=== PATIENT | male | born 1950 | race Caucasian/White ===

== ENCOUNTER 2016-12-24 18:49 | Emergency (ER) | payer OTHER ==
[~2016-12-24] VITALS: Ht 182.9 cm; Wt 147.6 kg
[2016-12-24 21:20] LABS: CHLORIDE 104 mEq/L (99-109); POTASSIUM 4.3 mEq/L (3.7-5.4); SODIUM 142 mEq/L (136-147)
[2016-12-24 21:21] LABS: GLUCOSE 110 mg/dL (70-99)
[2016-12-24 21:23] LABS: ANION GAP 12 MEQ/L (2-14)
[2016-12-24 21:25] LABS: GFR ESTIMATE (CALCULATED) 59 mL/min/
[2016-12-24 21:26] LABS: UREA NITROGEN (BUN) 21 mg/dL (9-23)
[2016-12-24] MEDS ORDERED: XARELTO15 MG PO (21:41)
[2016-12-24 22:05] VITALS: BP 160/74
== END 2016-12-24 22:06 | disposition home or self-care (01) ==
LOC: EME 18:49
PROVIDERS: Physician Assistant
DX: I82.412 Acute embolism and thrombosis of left femoral vein (principal); I10 Essential (primary) hypertension; Z87.891 Personal history of nicotine dependence
CPT/HCPCS: 80048; 93971; 99281; 99284